=== PATIENT | female | born 1965 | race Caucasian/White ===

== ENCOUNTER 2016-11-28 14:25 | Emergency (ER) | payer OTHER ==
[~2016-11-28] VITALS: Ht 144.8 cm; Wt 103.7 kg
[~2016-11-28 14:25] MED LIST: ASPI81TA82 PO; GLIP5 PO; LEVO125T48; LORTA5 PO; LOTRCRE TOP; METO50TA PO; ONDA1TAB16 PO; SULF500T35 PO; TIMO0.5S4 BOTH EYES; TRAM50 PO; TRIA37.512 PO; VITA20002 PO
[2016-11-28 14:32] VITALS: BP 168/90; PULSE 74; RESP 16; TEMP 97.7; O2SAT 97
[2016-11-28] MEDS ORDERED: METO50TA11 PO (14:59)
[2016-11-28] MEDS ORDERED: CLOTCRE TOPICAL (14:59)
[2016-11-28] MEDS ORDERED: HYDR-3516 PO (14:59)
[2016-11-28] MEDS ORDERED: DICL1GEL TOPICAL (14:59)
[2016-11-28] MEDS ORDERED: LEVO175T2 PO (14:59)
[2016-11-28] MEDS ORDERED: TIMO0.5S4 EACH EYE (14:59)
[2016-11-28] MEDS ORDERED: HYDR200T3 PO (14:59)
[2016-11-28] MEDS ORDERED: TRIA37.53 PO (14:59)
[2016-11-28] MEDS ORDERED: SULF500T3 PO (14:59)
[2016-11-28] MEDS ORDERED: GLIP5TAB8 PO (14:59)
[2016-11-28] MEDS ORDERED: PRED2.5T PO (14:59)
--- NOTE | 2016-11-28 15:13 | PD ---
HPI Chief Complaint: Flank/Kidney Pain Time Seen by Provider: 14:39 Travel History International Travel<30 days: No Contact w/Intl Traveler<30days: No Traveled to known affect area: No History of Present Illness HPI The patient was seen and examined in the presence of the nurse. This patient complains of the abrupt onset of right flank pain. Duration 1 hour. Severity is moderate. She was seated at a desk when she just developed pain. No injury. No urinary complaints or fever or hematuria. No alleviating factors. Never had a kidney stone. She has rheumatoid arthritis PFSH Past Medical History Hx Anticoagulant Therapy: Yes (ASPIRIN) Arthritis: Yes (RA) Autoimmune Disease: Yes (LUPUS, RHEUMATOID ARTHRITIS) Blood Disorders: No Heart Rhythm Problems: Yes (TACHYCARDIA) Cancer: No Cardiovascular Problems: Yes (htn on meds) High Cholesterol: No Chemotherapy: No Chest Pain: No Congestive Heart Failure: No Cerebrovascular Accident: No Diabetes: Yes (type 2) Patient Takes Glucophage: No Diminished Hearing: No Endocrine: Yes Gastrointestinal Disorders: Yes GERD: Yes Glaucoma: Yes Genitourinary: Yes Headaches: No Hepatitis: No Hiatal Hernia: No Hypertension: Yes Immune Disorder: Yes Musculoskeletal: Yes Neurologic: Yes Psychiatric: No Reproductive: No Respiratory: No Migraines: No Myocardial Infarction: No Radiation Therapy: No Seizures: No Thyroid Disease: Yes (HYPO) Ulcer: No Influenza Vaccination: No ?: Not LMP: 10/13/16 Menopausal: Yes : 2 Para: 2 Past Surgical History Abdominal Surgery: Yes (CHOLESTECTOMY) AICD: No Appendectomy: No Arteriovenous Shunt: No Cardiac Surgery: No Cholecystectomy: Yes Ear Surgery: No Endocrine Surgery: Yes (BARTHOLIN'S CYST REMOVAL, 1987) Eye Surgery: No Genitourinary Surgery: No Gynecologic Surgery: No Insulin Pump: No Joint Replacement: No Oral Surgery: No Pacemaker: No Thoracic Surgery: No Other Surgery: Yes Social History Alcohol Use: No Tobacco Use: No Substance Use: No Allergies-Medications (Allergen,Severity, Reaction): Coded Allergies: Cj (Verified Allergy, Severe, SWELLING, 11/28/16) Compazine (Verified Adverse Reaction, Severe, DIZZY, 11/28/16) Reported Meds & Prescriptions Reported Meds & Active Scripts Active Cipro (Ciprofloxacin HCl) 500 Mg Tab 500 Mg PO BID Reported Hydrocodone-Acetaminophen 5-325 mg Tab 1 Tab PO QHS PRN Triamterene-Hydrochlorothiazide 37.5-25 Mg Cap 1 Cap PO DAILY Levothyroxine (Levothyroxine Sodium) 175 Mcg Tab 175 Mcg PO DAILY Metoprolol Succinate ER 24 HR (Metoprolol Succinate) 50 Mg Tab 50 Mg PO DAILY Sulfasalazine 500 Mg Tab 1,000 Mg PO DAILY Glipizide 5 Mg Tab 5 Mg PO BIDAC Take 30 minutes before a meal Timoptic-Xe Opth Gel (Timolol Opth Gel) 0.5 % Gel 1 Drop EACH EYE DAILY Clotrimazole-Betamethasone Topical (Betamethasone/Clotrimazole) 1-0.05% Cream 1 Applic TOPICAL BID Voltaren Topical (Diclofenac Topical) 1% Gel 1 Applic TOPICAL QID Hydroxychloroquine (Hydroxychloroquine Sulfate) 200 Mg Tab 200 Mg PO BID Takw with food Prednisone 2.5 Mg Tab 2.5 Mg PO BID Review of Systems General / Constitutional: No: Fever Eyes: No: Visual changes HENT: No: Headaches Cardiovascular: Positive: Diaphoresis, No: Chest Pain or Discomfort Respiratory: No: Shortness of Breath Gastrointestinal: Positive: Nausea, No: Abdominal Pain Genitourinary: Positive: Flank Pain, No: Dysuria Musculoskeletal: Positive: Pain Skin: No Rash Neurologic: No: Weakness Psychiatric: No: Depression Endocrine: No: Polydipsia Hematologic/Lymphatic: No: Easy Bruising Physical Exam Narrative GENERAL: Well-nourished, well-developed patient with right flank pain. SKIN: Focused skin assessment reveals no rash and nodules. Skin is Warm and dry. HEAD: Atraumatic. Normocephalic. EYES: Pupils equal and round. No scleral icterus. No injection or drainage. ENT: No nasal bleeding or discharge. Mucous membranes pink and moist. NECK: Trachea midline. No JVD. CARDIOVASCULAR: Regular rate and rhythm. No murmur appreciated. RESPIRATORY: No accessory muscle use. Clear to auscultation. Breath sounds equal bilaterally. GASTROINTESTINAL: Abdomen soft, non-tender, nondistended. Hepatic and splenic margins not palpable. MUSCULOSKELETAL: No obvious deformities. No clubbing. No cyanosis. Has some edema of the feet and ankles and lower legs bilaterally with some hyperpigmentation stasis. Back exam reveals no midline tenderness. She does have right sided low back tenderness NEUROLOGICAL: Awake and alert. No obvious cranial nerve deficits. Motor grossly within normal limits. Normal speech. PSYCHIATRIC: Appropriate mood and affect; insight and judgment normal. Data Data Last Documented VS Vital Signs Date Time Temp Pulse Resp B/P Pulse Ox O2 Delivery O2 Flow Rate FiO2 11/28/16 14:32 97.7 74 16 168/[address] Abd/Pel W/O Iv Contrast (11/28/16 ) Urinalysis - C+S If Indicated (11/28/16 15:02) Ondansetron Inj (Zofran Inj) (11/28/16 15:15) Morphine Inj (Morphine Inj) (11/28/16 15:15) Urine Culture (11/28/16 15:10) Ondansetron Inj (Zofran Inj) (11/28/16 16:30) Morphine Inj (Morphine Inj) (11/28/16 16:30) Ketorolac Inj (Toradol Inj) (11/28/16 16:30) Labs Laboratory Tests Test 11/28/16 15:10 Urine Color YELLOW Urine Turbidity CLEAR Urine pH 7.0 Urine Specific [place] 1.017 Urine Protein 100 mg/dL Urine Glucose (UA) NEG mg/dL Urine Ketones NEG mg/dL Urine Occult Blood LARGE Urine Nitrite NEG Urine Bilirubin NEG Urine Leukocyte Esterase MOD Urine RBC 10-14 /hpf Urine WBC 20-24 /hpf Urine WBC Clumps FEW Urine Squamous Epithelial > 8 /hpf Cells Urine Bacteria FEW /hpf Microscopic Urinalysis Comment CULTURE INDICATED MDM Medical Decision Making Medical Screen Exam Complete: Yes Emergency Medical Condition: Yes Medical Record Reviewed: Yes Differential Diagnosis Kidney stone, sciatica, lumbar strain Narrative Course I have reviewed the patient's electronic medical record. Gave her injection of morphine and Zofran for symptom relief Urinalysis shows 10-[address] of abdomen and pelvis shows a right sided hydronephrosis but no obvious stone. I reviewed the CT scan with radiologist as well as urologist enterprise application developer Dr. Juan Manuel Mendez. Dr. Mendez looked at the scan and will follow this patient in his office. He will do some additional testing to determine whether true obstruction is present. Patient feels improved but still having some discomfort. I gave a second round of pain medication and she will be discharged 30 minutes following that. She has hydrocodone at home I wrote her a week of Cipro Diagnosis Primary Impression: Acute right flank pain Additional Impression: Hydronephrosis of right kidney Additional Instructions: Follow up with urologist Dr. Juan Manuel Mendez Call tomorrow for appointment Med/Other Pt SpecificInfo: Prescription(s) given Scripts Ciprofloxacin (Cipro)500 Mg [id number] Mg PO BID #14 TAB Ref 0 Prov:Prashant Kay MD 11/28/16 Disposition: 01 DISCHARGE HOME Condition: Stable Prashant Kay MD Nov 28, 2016 15:13
[2016-11-28] MEDS ORDERED: ONDANSETRON HCL 4 MG/2 ML VIAL IM ONE ×2 (15:15→16:30)
[2016-11-28] MEDS ORDERED: MORPHINE SULFATE 4 MG/ML INJ IM ONE ×2 (15:15→16:30)
[2016-11-28 15:17] LABS: BLOOD, URINE LARGE (NEG); GLUCOSE,URINE NEG (NEG); KETONE, URINE NEG (NEG); NITRITE,URINE NEG (NEG)
[2016-11-28 15:38] LABS: URINE COLOR YELLOW (YELLW/STRAW)
[2016-11-28 15:39] LABS: BACTERIA, URINE FEW /hpf; COMMENT (UR) CULTURE INDICATED; CULTURE IF INDICATED CULTURE INDICATED; SQUAMOUS EPITHELIAL CELL URINE > 8 /hpf (0-5)
--- NOTE | 2016-11-28 15:57 | RADHPO ---
EXAM DATE/TIME: 11/28/2016 15:29 [facility] COMPARISON: CT ABDOMEN & PELVIS W CONTRAST, December 05, 2013, 3:29. CT ABDOMEN & PELVIS W/O CONTRAST, October 01, 2015, 7:26. INDICATIONS : Right flank pain. ORAL CONTRAST: No oral contrast ingested. RADIATION DOSE: 27.89 CTDIvol (mGy) MEDICAL HISTORY : Hypertension. Gastroesophageal reflux disease. Diabetes. SURGICAL HISTORY : Cholecystectomy. ENCOUNTER: Initial ACUITY: 1 day PAIN SCALE: 4/10 LOCATION: Right flank TECHNIQUE: Volumetric scanning of the abdomen and pelvis was performed. Using automated exposure control and ad justment of the mA and/or kV according to patient size, radiation dose was kept as low as reasonably achievable to obtain optimal diagnostic quality images. FINDINGS: Abdomen CT: There is an approximate 5 mm stone in the left lower pole kidney and not changed. There is significan t dilatation of the right renal pelvis there is the appearance of UPJ obstruction without definite ur eteral stone and renal pelvis measures almost 5.2 cm in size. There appears to be a stricture at this level of the UPJ on the right. The spleen, pancreas, adrenals are unremarkable. There is no evidence for any appreciable pathological adenopathy, free fluid, or bowel obstruction. Slight scarring and/ or atelectasis is seen in the left lung base. The liver is diffusely fatty without focal lesions for technique. Pelvic CT: There is prominence of the cervix the measures 7.3 cm in size may be due to technique, however underl yoni mass is difficult to exclude. IMPRESSION: 1. UPJ obstruction on the right side appears to be related to a stricture without definite stone. The exact etiology is not certain. 2. No change in left renal stone and fatty liver. 3. Prominent cervix possibly technical, however underlying mass is difficult to exclude. Abdullahi Rodrigez MD on November 28, 2016 at 15:48 Board Certified Radiologist. This report was verified electronically.
[2016-11-28] MEDS ORDERED: CIPR-9 PO (16:12)
[2016-11-28] MEDS ORDERED: KETOROLAC TROMETHAMINE 60 MG/2 ML (IM) VIAL IM ONE (16:30)
[2016-11-28 17:12] VITALS: BP 154/88
== END 2016-11-28 17:18 | disposition home or self-care (01) ==
LOC: PHED 14:25
DX: R10.84 Generalized abdominal pain (principal); N13.30 Unspecified hydronephrosis; M32.9 Systemic lupus erythematosus, unspecified; M06.9 Rheumatoid arthritis, unspecified; R00.0 Tachycardia, unspecified; I10 Essential (primary) hypertension; E11.9 Type 2 diabetes mellitus without complications; Z79.4 Long term (current) use of insulin; Z79.82 Long term (current) use of aspirin
CPT/HCPCS: 74176; 81001; 87086; 96372; 99284; J1885; J2270; J2405